=== PATIENT | male | born 1980 | race Caucasian/White ===

== ENCOUNTER 2019-09-18 07:19 | Emergency (ER) | payer BC, OTHER ==
--- NOTE | 2019-09-18 08:01 | EDM.PDOC ---
ED HPI GENERAL MEDICAL PROBLEM - General Chief Complaint: Respiratory Problem Stated Complaint: CONGESTION,COUGH, RUNNY NOSE Time Seen by Provider: 09/18/19 07:49 - History of Present Illness INITIAL COMMENTS - FREE TEXT/NARRATIVE: 38-year-old male presents emergency room with cough congestion and achy all over. This started yesterday morning. He has some nasal congestion. Occasionally has a productive cough bringing up scant amounts of sputum. He is not having any breathing difficulties or shortness of breath he is not having a sore throat. Past medical history significant for hypertension he is taking lisinopril for this. The patient came appear 5 days ago from [facility]. Upon arrival here Thursday 1 of his coworkers was sent home sick who was coughing quite a bit had a productive cough and fever. Patient does not have any chest pain minimal shortness of breath. He is achy all over. - Related Data Allergies Allergy/AdvReac Type Severity Reaction Status Date / Time No Known Allergies Allergy Verified 09/18/19 07:32 Home Meds: Home Meds Lisinopril [Zestril] 1 tab PO DAILY 09/18/19 [History] Oseltamivir [Tamiflu] 75 mg PO BID #9 cap 09/18/19 [Rx] buprenorphine HCL [Buprenorphine HCl] 1 tab PO DAILY 09/18/19 [History] Past Medical History Cardiovascular History: Reports: Hypertension Psychiatric History: Reports: Depression ED ROS GENERAL - Review of Systems Review Of Systems: See Below Constitutional: Reports: Fever, Chills HEENT: Reports: Rhinitis. Denies: Dental Pain, Ear Discharge, Ear Pain, Nosebleed, Nose Pain, Throat Pain Respiratory: Reports: Cough, Sputum. Denies: Shortness of Breath, Wheezing, Pleuritic Chest Pain Cardiovascular: Reports: No Symptoms GI/Abdominal: Reports: No Symptoms : Reports: No Symptoms Musculoskeletal: Reports: Other (Achy all over) Skin: Reports: No Symptoms Neurological: Reports: No Symptoms ED EXAM, GENERAL - Physical Exam Exam: See Below Exam Limited By: No Limitations General Appearance: Alert, No Apparent Distress Eye Exam: Bilateral Eye: Normal Inspection Ears: Normal External Exam, Normal Canal, Hearing Grossly Normal, Normal TMs Nose: Normal Inspection, Normal Mucosa, No Blood, Clear Rhinorrhea Throat/Mouth: Normal Inspection, Normal Lips, Normal Teeth, Normal Gums, Normal Oropharynx, Normal Voice, No Airway Compromise Head: Atraumatic, Normocephalic Neck: Normal Inspection, Supple, Non-Tender, Full Range of Motion. No: Lymphadenopathy (L), Lymphadenopathy (R) Respiratory/Chest: No Respiratory Distress, Lungs Clear, Normal Breath Sounds Cardiovascular: Regular Rate, Rhythm, No Edema, No JVD, No Murmur, No Rub GI/Abdominal: Normal Bowel Sounds, Soft, Non-Tender Back Exam: Normal Inspection. No: CVA Tenderness (L), CVA Tenderness (R) Course - Vital Signs Last Recorded V/S: Last Vital Signs Temp 36.7 C 09/18/19 07:30 Pulse 83 09/18/19 07:30 Resp 16 09/18/19 07:30 BP 121/78 09/18/19 07:30 Pulse Ox 98 09/18/19 07:30 - Orders/Labs/Meds Orders: Active Orders 24 hr Category Date Time Status Isolation [COMM] Routine Oth 09/18/19 08:01 Ordered - Re-Assessments/Exams Free Text/Narrative Re-Assessment/Exam: 09/18/19 08:59 Patient's influenza screen for influenza A was positive. Did discuss the pros and cons of the Tamiflu and the patient would like to do this. Departure - Departure Time of Disposition: 09:03 Disposition: Home, Self-Care 01 Clinical Impression: Influenza A - Discharge Information Prescriptions: Oseltamivir [Tamiflu] 75 mg PO BID #9 cap Referrals: PCP,Not In Area [Primary Care Provider] - Forms: ED Department Discharge, ED Return to Work/School Form Additional Instructions: Return to the emergency room with any questions problems or worsening symptoms. Take the Tamiflu as directed. Use Tylenol as needed for aches pains and fever. Push lots of fluids Sepsis Event Note - Evaluation Sepsis Screening Result: No Definite Risk - Focused Exam Vital Signs: Vital Signs Temp Pulse Resp BP Pulse Ox 09/18/19 07:30 36.7 C 83 16 121/78 98 Date Exam was Performed: 09/18/19 Time Exam was Performed: 08:59 - My Orders Last 24 Hours: My Active Orders 09/18/19 08:01 Isolation [COMM] Routine - Assessment/Plan Last 24 Hours: My Active Orders 09/18/19 08:01 Isolation [COMM] Routine
[2019-09-18] MEDS ORDERED: Oseltamivir 75 MG Cap PO ONE (09:02)
== END 2019-09-18 09:26 | disposition home or self-care (01) ==
LOC: JD.ED 07:19
DX: J10.1 Influenza due to other identified influenza virus with other respiratory manifestations (principal); Z79.899 Other long term (current) drug therapy
CPT/HCPCS: 87804; 99283; A9270